=== PATIENT | female | born 1945 | race Caucasian/White ===

== ENCOUNTER → 2016-04-01 | Outpatient (CLI) | payer MEDICARE ==
[2016-04-01 08:13] LABS: BASOPHILS % (AUTO) 0 % (0-2); EOSINOPHILS # (AUTO) 0.1 10^3uL; EOSINOPHILS % (AUTO) 2 % (0-4); LYMPHOCYTES # (AUTO) 0.8 X10^3; MEAN CORPUSCULAR HEMOGLOBIN 30.3 PG (26.0-34.0); MEAN CORPUSCULAR HGB CONC 32.9 g/dL (31.0-37.0); MEAN CORPUSCULAR VOLUME 92 FL (80-100); MEAN PLATELET VOLUME 10.4 FL (6.0-9.5); MONOCYTES # (AUTO) 0.3 X10^3; MONOCYTES % (AUTO) 8 % (3-11); NEUTROPHILS # (AUTO) 2.6 X10^3; NEUTROPHILS % (AUTO) 69 % (51-67); PLATELET COUNT 127 10^3uL (150-450); WHITE BLOOD COUNT 3.76 10^3uL (4.0-11.0)
[2016-04-01 09:01] LABS: ANION GAP 14.6 MEQ/L (3-15); TOTAL PROTEIN 7.2 g/dL (6.4-8.5)
== END ==
LOC: RAD 07:56
PROVIDERS: ATTEND Internal Medicine Gastroenterology
DX: K74.60 Unspecified cirrhosis of liver (principal); K73.8 Other chronic hepatitis, not elsewhere classified; Z79.899 Other long term (current) drug therapy
CPT/HCPCS: 36415; 76700; 80053; 82105; 85025; 85610; 85730

== ENCOUNTER → 2016-04-09 | Outpatient (CLI) | payer MEDICARE | LOC: RAD 08:12 | PROVIDERS: ATTEND Internal Medicine Gastroenterology | DX: R16.0 Hepatomegaly, not elsewhere classified (principal); K76.0 Fatty (change of) liver, not elsewhere classified | CPT/HCPCS: 74170; Q9967 ==

== ENCOUNTER → 2016-06-30 | Outpatient (CLI) | payer MEDICARE ==
[~2016-06-30] MED LIST: AZTH50T PO; CHOL100061 PO; GALA24CA PO; IBUP-30 PO; MEMA1CAP PO; MULT1TAB PO; OMEP20CA6 PO; RANI150T15 PO; VIT1CAPS5 PO; VITA1CAP PO
[2016-06-30 09:36] LABS: BASOPHILS % (AUTO) 0 % (0-2); EOSINOPHILS # (AUTO) 0.3 10^3uL; EOSINOPHILS % (AUTO) 5 % (0-4); LYMPHOCYTES # (AUTO) 0.9 X10^3; MEAN CORPUSCULAR HEMOGLOBIN 30.7 PG (26.0-34.0); MEAN CORPUSCULAR HGB CONC 32.5 g/dL (31.0-37.0); MEAN CORPUSCULAR VOLUME 94 FL (80-100); MEAN PLATELET VOLUME 10.4 FL (6.0-9.5); MONOCYTES # (AUTO) 0.5 X10^3; MONOCYTES % (AUTO) 10 % (3-11); NEUTROPHILS # (AUTO) 3.8 X10^3; NEUTROPHILS % (AUTO) 68 % (51-67); PLATELET COUNT 147 10^3uL (150-450); WHITE BLOOD COUNT 5.51 10^3uL (4.0-11.0)
[2016-06-30 09:58] LABS: ANION GAP 13.1 MEQ/L (3-15); CALCULATED IONIZED CALCIUM 3.8 mg/dL (3.8-4.6); TOTAL PROTEIN 7.3 g/dL (6.4-8.5)
== END ==
LOC: LAB 09:19
PROVIDERS: ATTEND Internal Medicine Gastroenterology
DX: Z79.899 Other long term (current) drug therapy (principal)
CPT/HCPCS: 36415; 80053; 85025